=== PATIENT | male | born 1930 | race Caucasian/White ===

== ENCOUNTER 2016-10-08 06:08 | Emergency (ER) | payer OTHER ==
[2016-10-08 06:19] VITALS: RESP 16; TEMP 97.5
--- NOTE | 2016-10-08 06:49 | EDPHY ---
H & P Stated Complaint: rash on hands and feet Time Seen by Provider: 10/08/16 06:49 - Personal History Current Tetanus/Diphtheria Vaccine: No Current Tetanus Diphtheria and Acellular Pertussis (TDAP): No - Medical/Surgical History Hx Asthma: No Hx Chronic Respiratory Disease: No Hx Diabetes: No Hx Cardiac Disease: No Hx Renal Disease: No Hx Cirrhosis: No Hx Alcoholism: No Hx HIV/AIDS: No Hx Splenectomy or Spleen Trauma: No Other PMH: CLUSTER BAZZI, HERNIA REPAIR. back injuries - Social History Smoking Status: Never smoked Constitutional: Initial Vital Signs Temperature (C) 36.4 C 10/08/16 06:16 Heart Rate 86 10/08/16 06:16 Respiratory Rate 16 10/08/16 06:16 Blood Pressure 127/74 H 10/08/16 06:16 O2 Sat (%) 97 10/08/16 06:16 O2 Delivery Mode Room Air Allergies/Adverse Reactions: latex Allergy (Verified 10/08/16 06:14) elastic Allergy (Uncoded 03/19/15 21:42) Home Medications: Medication Instructions Recorded Aspirin [Aspirin 325 mg (*)] 650 mg PO DAILY PRN 03/20/15 Herbals/Supplements -Info Only 1 ea PO AD 03/20/15 Calcium Carbonate/Vitamin D3 1 each PO DAILY 03/22/15 [Calcium 600 + D Tablet] Amoxicillin 10/08/16 Famotidine [Pepcid 20 MG (OTC)] 20 mg PO DAILY #10 tab 10/08/16 predniSONE 40 mg PO DAILY #10 tab 10/08/16 Medical Decision Making ED Course/Re-evaluation: CHIEF COMPLAINT: Rash HISTORY OF PRESENT ILLNESS: 85-year-old gentleman who has been on amoxicillin for about a week as a treatment prior to a root canal. About 3 in the morning he woke up with very warm hands and feet. He noticed a red rash coming up his legs and on his hands and arms and also on his chest and buttocks. It is fairly diffuse and itchy and warm. He denies any respiratory difficulties. He denies any oropharyngeal swelling. He denies any lightheadedness dizziness or syncope. It is just itchy and hot REVIEW OF SYSTEMS: A 10 point review of systems was performed and is negative with the exception of the elements mentioned in the history of present illness. PHYSICAL EXAM: HR, BP, O2 Sat, RR. Temp noted General Appearance: Alert, well hydrated, appropriate, and non-toxic appearing. Head: Atraumatic without scalp tenderness or obvious injury Eyes: Pupils equal, round, reactive to light and accommodation, EOMI, no trauma , no injection. Ears: Clear bilaterally, no perforation, normal landmarks Nose: Atraumatic, no rhinorrhea, clear. Throat: There is no erythema or exudates, no lesions, normal tonsils, mucus membranes moist. Neck: Supple, 2+ carotid upstroke, nontender, no lymphadenopathy. Respiratory: No retractions, no distress, no wheezes, and no accessory muscle use. Lungs are clear to auscultation bilaterally. Cardiovascular: Regular rate and rhythm, no murmurs, rubs, or gallops. Bilateral carotid, radial, dorsalis pedis, and posterior tibial pulses intact. Good capillary refill all extremities. Gastrointestinal: Abdomen is soft, nontender, non-distended, no masses, no rebound, no guarding, no peritoneal signs. Musculoskeletal: Normal active ROM of all extremities, atraumatic. Neurological: Alert, appropriate, and interactive. The patient has normal DTRs and non-focal cranial nerves, motor, sensory, and cerebellar exam. Skin: Is no evidence of purpura or petechiae. This is papular rash which is fairly diffuse on his trunk buttocks lower back feet encroaching up the legs and hands encroaching up the arms. It does pooja. No rashes, good turgor, no nodules on palpation. Past medical history: Noncontributory except for dental issues requiring amoxicillin Past surgical history: Noncontributory Family history: Noncontributory Social history: , here with , does not abuse tobacco drugs or alcohol, retired DIFFERENTIAL DIAGNOSIS: The differential diagnosis included but was not limited to angioedema, anaphylaxis, anaphylactoid reaction, urticarial reaction , and other infectious causes for skin rash. Drug reaction, petechiae, purpura MEDICAL DECISION MAKING: I will check some laboratory studies on this patient to make sure his CBC electrolytes look normal. I have given him 10 mg of Decadron, 40 mg of Pepcid, 25 mg of Benadryl. There is no evidence of any respiratory difficulties. I believe this is fairly classically from amoxicillin as it has started and truncal distribution. This patient's rash is starting to resolve significantly. In addition the laboratory studies are unremarkable for any platelet abnormalities or electrolyte abnormalities or clotting abnormalities. I will ask the patient to stop amoxicillin, continue prednisone and Pepcid, and we will declare him amoxicillin allergic at this time. On repeat exams patient still is in no distress They will call her primary care physician today in follow-up either later today or tomorrow and return here if anything worsens. - Data Points Laboratory Results: Laboratory Results 10/08/16 07:11 10/08/16 07:11 10/08/16 07:11 WBC 9.75 H 10^3/uL (3.80-9.50) RBC 4.95 10^6/uL (4.40-6.38) Hgb 15.9 g/dL (13.7-17.5) Hct 45.6 % (40.0-51.0) MCV 92.1 fL (81.5-99.8) MCH 32.1 pg (27.9-34.1) MCHC 34.9 g/dL (32.4-36.7) RDW 13.0 % (11.5-15.2) Plt Count 269 10^3/uL (150-400) MPV 9.7 fL (8.7-11.7) Neut % (Auto) 80.8 H % (39.3-74.2) Lymph % (Auto) 6.2 L % (15.0-45.0) [place] % (Auto) 7.7 % (4.5-13.0) Eos % (Auto) 4.5 % (0.6-7.6) Baso % (Auto) 0.4 % (0.3-1.7) Nucleat RBC Rel Count 0.0 % (0.0-0.2) Absolute Neuts (auto) 7.88 H 10^3/uL (1.70-6.50) Absolute Lymphs (auto) 0.60 L 10^3/uL (1.00-3.00) Absolute Monos (auto) 0.75 10^3/uL (0.30-0.80) Absolute Eos (auto) 0.44 H 10^3/uL (0.03-0.40) Absolute Basos (auto) 0.04 10^3/uL (0.02-0.10) Absolute Nucleated RBC 0.00 10^3/uL (0-0.01) Immature Gran % 0.4 % (0.0-1.1) Immature Gran # 0.04 10^3/uL (0.00-0.10) PT 13.6 SEC (12.0-15.0) INR 1.05 (0.83-1.16) APTT 29.3 SEC (23.0-38.0) Sodium 144 mEq/L (134-144) Potassium 4.1 mEq/L (3.5-5.2) Chloride 105 mEq/L (97-110) Carbon Dioxide 29 mEq/l (22-31) Anion Gap 10 mEq/L (8-16) BUN 16 mg/dL (7-23) Creatinine 0.8 mg/dL (0.7-1.3) Estimated GFR > 60 Glucose 95 mg/dL (70-100) Calcium 9.0 mg/dL (8.5-10.4) Total Bilirubin 0.9 mg/dL (0.1-1.4) Conjugated Bilirubin 0.3 mg/dL (0.0-0.5) Unconjugated Bilirubin 0.6 mg/dL (0.0-1.1) AST 28 IU/L (17-59) ALT 42 IU/L (21-72) Alkaline Phosphatase 51 IU/L (38-126) Total Protein 7.2 g/dL (6.3-8.2) Albumin 4.0 g/dL (3.5-5.0) Lipase 54.0 IU/L (23-300) Medications Given: Discontinued Medications Dexamethasone (Decadron Injection) 10 mg IVP EDNOW ONE Stop: 10/08/16 06:58 Last Admin: 10/08/16 07:26 Dose: 10 mg Diphenhydramine HCl (Benadryl Injection) 25 mg IVP EDNOW ONE Stop: 10/08/16 06:58 Last Admin: 10/08/16 07:26 Dose: 25 mg Famotidine (Pepcid) 40 mg IVP EDNOW ONE Stop: 10/08/16 06:58 Last Admin: 10/08/16 07:26 Dose: 40 mg Departure - Departure Disposition: Home, Routine, Self-Care Clinical Impression: Allergic drug reaction Qualifiers: Encounter type: initial encounter Qualifier Code: (T78.40XA) Allergy, unspecified, initial encounter Condition: Good Instructions: Antibiotic Medication Allergy (ED) Additional Instructions: Follow up with your primary care physician today or tomorrow please. If anything worsens return here immediately Referrals: [place],. [Primary Care Provider] - As per Instructions Prescriptions: Famotidine [Pepcid 20 MG (OTC)] 20 mg PO DAILY #10 tab predniSONE 40 mg PO DAILY #10 tab
[2016-10-08] MEDS ORDERED: FAMOTIDINE 20 MG/2 ML SDV IVP ONE (06:57)
[2016-10-08] MEDS ORDERED: DEXAMETHASONE 10 MG/ML VIAL IVP ONE (06:57)
[2016-10-08 07:18] LABS: % IMMATURE GRANULYOCYTES 0.4 % (0.0-1.1); ABSOLUTE IMMATURE GRANULOCYTES 0.04 10^3/uL (0.00-0.10); ADD DIFF? NO; ADD MORPH? NO; ADD SCAN? NO; ATYPICAL LYMPHOCYTE FLAG 10 (0-99); FRAGMENT RBC FLAG 0 (0-99); HEMATOCRIT 45.6 % (40.0-51.0); HEMOGLOBIN 15.9 g/dL (13.7-17.5); LEFT SHIFT FLG 0 (0-99); LIPEMIA HEMOLYSIS FLAG 90 (0-99); MEAN CELL HEMOGLOBIN 32.1 pg (27.9-34.1); MEAN CELL HEMOGLOBIN CONCENTR. 34.9 g/dL (32.4-36.7); MEAN CELL VOLUME 92.1 fL (81.5-99.8); MEAN PLATELET VOLUME 9.7 fL (8.7-11.7); PLATELET CLUMPS FLAG 10 (0-99); PLATELET COUNT 269 10^3/uL (150-400); RED BLOOD CELL COUNT 4.95 10^6/uL (4.40-6.38)
[2016-10-08 07:26] LABS: INR 1.05 (0.83-1.16); PROTIME(PATIENT) 13.6 SEC (12.0-15.0)
[2016-10-08 07:27] LABS: APTT 29.3 SEC (23.0-38.0)
[2016-10-08 07:40] LABS: ALANINE AMINOTRANSFERASE 42 IU/L (21-72); ALKALINE PHOSPHATASE 51 IU/L (38-126); ANION GAP 10 mEq/L (8-16); ASPARTATE AMINOTRANSFERASE 28 IU/L (17-59); BILIRUBIN,TOTAL 0.9 mg/dL (0.1-1.4); BILIRUBIN-CONJUGATED 0.3 mg/dL (0.0-0.5); BILIRUBIN-UNCONJUGATED 0.6 mg/dL (0.0-1.1); CARBON DIOXIDE 29 mEq/l (22-31); CHLORIDE 105 mEq/L (97-110); CREATININE 0.8 mg/dL (0.7-1.3); GLOMERULAR FILTRATION RATE > 60; GLUCOSE 95 mg/dL (70-100); POTASSIUM 4.1 mEq/L (3.5-5.2); SODIUM 144 mEq/L (134-144); TOTAL PROTEIN 7.2 g/dL (6.3-8.2)
[2016-10-08 08:49] VITALS: BP 117/68; PULSE 70; O2SAT 94
== END 2016-10-08 08:48 | disposition home or self-care (01) ==
DX: T78.40XA Allergy, unspecified, initial encounter (principal); Z91.040 Latex allergy status; Z79.82 Long term (current) use of aspirin
CPT/HCPCS: 96374; J1200

== ENCOUNTER 2017-06-09 04:53 | Emergency (ER) | payer OTHER ==
--- NOTE | 2017-06-09 05:24 | EDPHY ---
H & P Stated Complaint: epistaxis- stopped now Time Seen by Provider: 06/09/17 05:11 HPI/ROS: Chief Complaint: Epistaxis HPI: 86-year-old male with a history of epistaxis in the past had a brief nosebleed yesterday afternoon. That stopped on its own. This morning at 2 o' clock morning he woke up with some blood on his pillow. He felt some blood in his nose but it stopped after a couple of minutes. He did not apply any pressure. Did not perform any particular maneuver stop the bleeding. He has not had any bleeding since but is presenting for evaluation. Denies any lightheadedness. No chest pain shortness of breath he is not on any blood thinning medications. He has had cautery in the past. Does not currently under the care of an ear nose and throat doctor. ROS: 10 point Review of Systems is negative except as noted in the HPI. Social History: No smoking Family History: non-contributory Physical Exam: Gen: Awake, Alert, No Distress HEENT: Nose: He has some mild dried blood and his right nostril. There is no active bleeding. There is no source of bleeding appreciated on examination. Eyes: PERRLA, EOMI Mouth: Moist mucosa Skin: no rash Neuro: CN II-XII intact, Sensation grossly intact, Strength 5/5 in bilateral upper and [lower extremities - Medical/Surgical History Hx Asthma: No Hx Chronic Respiratory Disease: No Hx Diabetes: No Hx Cardiac Disease: No Hx Renal Disease: No Hx Cirrhosis: No Hx Alcoholism: No Hx HIV/AIDS: No Hx Splenectomy or Spleen Trauma: No Other PMH: CLUSTER BAZZI, HERNIA REPAIR. back injuries - Social History Smoking Status: Never smoked Constitutional: Initial Vital Signs Temperature (C) 36.5 C 06/09/17 04:59 Heart Rate 63 06/09/17 04:59 Respiratory Rate 20 06/09/17 04:59 Blood Pressure 123/82 H 06/09/17 04:59 O2 Sat (%) 97 06/09/17 04:59 O2 Delivery Mode Room Air Allergies/Adverse Reactions: latex Allergy (Verified 06/09/17 04:59) elastic Allergy (Uncoded 06/09/17 04:59) Home Medications: Medication Instructions Recorded Aspirin [Aspirin 325 mg (*)] 650 mg PO DAILY PRN 03/20/15 Herbals/Supplements -Info Only 1 ea PO AD 03/20/15 Calcium Carbonate/Vitamin D3 1 each PO DAILY 03/22/15 [Calcium 600 + D Tablet] Amoxicillin 10/08/16 Famotidine [Pepcid 20 MG (OTC)] 20 mg PO DAILY #10 tab 10/08/16 predniSONE 40 mg PO DAILY #10 tab 10/08/16 Medical Decision Making ED Course/Re-evaluation: Patient with an episode of bleeding from his nose earlier this morning. The stop. There is no active bleeding at this time. No region amenable to cautery at this time. Will discharge him with follow up with Ear Nose and Throat. He will also get a humidifier for his home. Departure - Departure Disposition: Home, Routine, Self-Care Clinical Impression: Acute anterior epistaxis Condition: Good Instructions: Nosebleed (ED) Additional Instructions: If your nose begins to bleed again apply a nose clip to the soft portion of your nose and leave it in place for 20-30 minutes. If this does not stop the bleeding present to the emergency department for further evaluation. Follow up with Ear Nose and Throat doctor in 2-3 days for further evaluation. Referrals: [facility] [Other] - As per Instructions Marco Antonio Brewster MD [Medical Doctor] - As per Instructions
[2017-06-09 06:06] VITALS: BP 141/74; PULSE 66; RESP 16; TEMP 97.9; O2SAT 94
== END 2017-06-09 06:05 | disposition home or self-care (01) ==
DX: R04.0 Epistaxis (principal); Z79.82 Long term (current) use of aspirin; Z91.040 Latex allergy status

== ENCOUNTER 2017-06-10 20:32 | Emergency (ER) | payer OTHER ==
[2017-06-10 20:41] VITALS: BP 147/90; PULSE 76; RESP 18; TEMP 98.4; O2SAT 96
--- NOTE | 2017-06-10 22:16 | EDPHY ---
H & P Stated Complaint: nosebleed HPI/ROS: HPI CHIEF COMPLAINT: Epistaxis seen last night HISTORY OF PRESENT ILLNESS: This patient is a very pleasant 86-year-old male, no significant medical history she presents to the emergency room yesterday with epistaxis. This resolved in the emergency room he followed up with ENT and had a cauterization of the right Nare. This was earlier this morning he reports he cannot remember exactly that exact time. He comes back to the emergency room as he states that he had a light trickle out of it this evening. He is debating whether to come in or follow up with ENT tomorrow. Since arriving in emergency room is epistaxis has resolved. He did have a nasal clamp in the waiting room for an hour. He is not on any anticoagulation. Past Medical History: Cluster headache, GERD Past Surgical History: Hernia repair Social History: Denies drugs alcohol tobacco products. Family History: Noncontributory. ROS REVIEW OF SYSTEMS: A comprehensive 10 point review of systems is otherwise negative aside from elements mentioned in the history of present illness. Exam Constitutional appears well nontoxic, triage nursing summary reviewed, vital signs reviewed, awake/alert. Eyes normal conjunctivae and sclera, EOMI, PERRLA. HENT right Wallace anterior epistaxis present. Left Wallace normal. normal inspection, atraumatic, moist mucus membranes, no epistaxis, neck supple/ no meningismus, no raccoon eyes. Respiratory clear to auscultation bilaterally, normal breath sounds, no respiratory distress, no wheezing. Cardiovascular rate normal, regular rhythm, no murmur, no edema, distal pulses normal. Gastrointestinal soft, non-tender, no rebound, no guarding, normal bowel sounds, no distension, no pulsatile mass. Genitourinary no CVA tenderness. Musculoskeletal no midline vertebral tenderness, full range of motion, no calf swelling, no tenderness of extremities, no meningismus, good pulses, neurovascularly intact. Skin pink, warm, & dry, no rash, skin atraumatic. Neurologic awake, alert and oriented x 3, AAOx3, moves all 4 extremities equally, motor intact, sensory intact, CN II-XII intact, normal cerebellar, normal vision, normal speech. Psychiatric normal mood/affect. Heme/Lymph/Immune no lymphadenopathy. Differential Diagnosis: Includes but is not limited to in a particular order acute right anterior epistaxis, posterior epistaxis, recurrent epistaxis Medical Decision Making: Plan for this patient resolved epistaxis in the waiting room. Recent cauterization by ENT today. Anterior nose bleed. Will monitor her closely for further bleeding. If he does not bleed over the next hour allow 1 go home. Follow up with ENT tomorrow. He understands. Return emergency room if recurrent or bleed. Re-evaluation: 2245: Re-examination at this time. Patient having no further epistaxis. Nasal clamp is been off for an hour. I will allow her to go home. Understands return emergency room if worsening symptoms including recurrent nosebleed. Return precautions given. He understands. Source: Patient - Medical/Surgical History Hx Asthma: No Hx Chronic Respiratory Disease: No Hx Diabetes: No Hx Cardiac Disease: No Hx Renal Disease: No Hx Cirrhosis: No Hx Alcoholism: No Hx HIV/AIDS: No Hx Splenectomy or Spleen Trauma: No Other PMH: CLUSTER BAZZI, HERNIA REPAIR. back injuries - Social History Smoking Status: Never smoked Constitutional: Initial Vital Signs Temperature (C) 36.9 C 06/10/17 20:39 Heart Rate 76 06/10/17 20:39 Respiratory Rate 18 06/10/17 20:39 Blood Pressure 147/90 H 06/10/17 20:39 O2 Sat (%) 96 06/10/17 20:39 O2 Delivery Mode Room Air Allergies/Adverse Reactions: amoxicillin Allergy (Verified 06/10/17 20:42) latex Allergy (Verified 06/09/17 04:59) elastic Allergy (Uncoded 06/09/17 04:59) Home Medications: Medication Instructions Recorded Aspirin [Aspirin 325 mg (*)] 650 mg PO DAILY PRN 03/20/15 Herbals/Supplements -Info Only 1 ea PO AD 03/20/15 Calcium Carbonate/Vitamin D3 1 each PO DAILY 03/22/15 [Calcium 600 + D Tablet] Famotidine [Pepcid 20 MG (OTC)] 20 mg PO DAILY #10 tab 10/08/16 predniSONE 40 mg PO DAILY #10 tab 10/08/16 Departure - Departure Disposition: Home, Routine, Self-Care Clinical Impression: Epistaxis Condition: Good Instructions: Nosebleed (ED) Additional Instructions: 1. Return to the emergency room if you continue to have significant bleeding. 2. Please follow up with ENT tomorrow. Referrals: [facility] [Other] - As per Instructions Stephen Edmondson MD [Medical Doctor] - As per Instructions
== END 2017-06-10 23:10 | disposition home or self-care (01) ==
DX: R04.0 Epistaxis (principal); Z79.82 Long term (current) use of aspirin; Z91.040 Latex allergy status

== ENCOUNTER 2017-06-11 12:14 | Emergency (ER) | payer OTHER ==
[2017-06-11 12:19] VITALS: BP 149/82; PULSE 53; RESP 20; TEMP 98.6; O2SAT 94
== END 2017-06-11 12:39 | disposition left against medical advice (07) ==
DX: Z53.21 Procedure and treatment not carried out due to patient leaving prior to being seen by health care provider (principal)

== ENCOUNTER 2017-11-10 15:29 | Observation (INO) | payer OTHER ==
--- NOTE | 2017-11-10 16:03 | EDPHY ---
H & P Stated Complaint: H/A since last fall;had MRI at [facility] today; dx poss brain bleed; sent here Time Seen by Provider: 11/10/17 15:53 HPI/ROS: CHIEF COMPLAINT: Abnormal MRI HISTORY OF PRESENT ILLNESS: The patient is an 86-year-old with a history of right-sided hearing loss but no other medical problems. He does not take any medications other than meclizine. He states that he had a bloody nose in June that required 2 cauterizations by ENT. Since that time he has had intermittent pressure at the top of his head when he exercises and also pain in the right side of his face when he tries to sleep on his right side. Last week he saw his primary doctor who ordered an MRI of his brain. Today it was taken and the patient was called by Dr. Peterson and told to come to the ER that he has a intracranial hemorrhage. The patient currently does not have a headache. He has no weakness or deficits. No vision changes. No hearing changes. He states that he has baseline slight vertigo that he takes meclizine for and that has not changed. REVIEW OF SYSTEMS: Constitutional: denies: chills, fever, recent illness, recent injury EENTM: denies: blurred vision, double vision, nose congestion Respiratory: denies: cough, shortness of breath Cardiac: denies: chest pain, irregular heart rate, lightheadedness, palpitations Gastrointestinal/Abdominal: denies: abdominal pain, diarrhea, nausea, vomiting, blood streaked stools Genitourinary: denies: dysuria, frequency, hematuria, pain Musculoskeletal: denies: joint pain, muscle pain Skin: denies: lesions, rash, jaundice, bruising Neurological: See HPI denies: numbness, paresthesia, tingling, weakness Hematologic/Lymphatic: denies: blood clots, easy bleeding, easy bruising Immunologic/allergic: denies: HIV/AIDS, transplant EXAM: GENERAL: Well-appearing, well-nourished and in no acute distress. HEAD: Atraumatic, normocephalic. EYES: Pupils equal round and reactive to light, extraocular movements intact, sclera anicteric, conjunctiva are normal. ENT: nares patent, oropharynx clear without exudates. Moist mucous membranes. Right-sided hearing loss NECK: Normal range of motion, supple without lymphadenopathy or JVD. LUNGS: Breath sounds clear to auscultation bilaterally and equal. No wheezes rales or rhonchi. HEART: Regular rate and rhythm without murmurs, rubs or gallops. ABDOMEN: Soft, nontender, normoactive bowel sounds. No guarding, no rebound. No masses appreciated. BACK: No CVA tenderness, no spinal tenderness, step-offs or deformities EXTREMITIES: Normal range of motion, no pitting or edema. No clubbing or cyanosis. NEUROLOGICAL: Cranial nerves II through XII grossly intact. Normal speech, normal gait. 5/5 strength, normal movement in all extremities, normal sensation PSYCH: Normal mood, normal affect. SKIN: Warm, dry, normal turgor, no visible rashes or lesions. Source: Patient Exam Limitations: No limitations - Personal History Current Tetanus Diphtheria and Acellular Pertussis (TDAP): Unsure - Medical/Surgical History Hx Asthma: No Hx Chronic Respiratory Disease: No Hx Diabetes: No Hx Cardiac Disease: No Hx Renal Disease: No Hx Cirrhosis: No Hx Alcoholism: No Hx HIV/AIDS: No Hx Splenectomy or Spleen Trauma: No Other PMH: CLUSTER BAZZI, HERNIA REPAIR. back injuries - Family History Significant Family History: No pertinent family hx - Social History Smoking Status: Never smoked Alcohol Use: Sober Drug Use: None Constitutional: Initial Vital Signs Temperature (C) 36.7 C 11/10/17 15:34 Heart Rate 76 11/10/17 15:34 Respiratory Rate 18 11/10/17 15:34 Blood Pressure 148/93 H 11/10/17 15:34 O2 Sat (%) 97 11/10/17 15:34 O2 Delivery Mode Room Air Allergies/Adverse Reactions: amoxicillin Allergy (Verified 11/10/17 15:33) latex Allergy (Verified 11/10/17 15:33) elastic Allergy (Uncoded 06/09/17 04:59) Home Medications: Medication Instructions Recorded NK [No Known Home Meds] 11/10/17 Medical Decision Making - Diagnostics Imaging Results: Imaging Impressions Head CT 11/10/17 16:04 Impression: 1. Small subdural collection, favor subacute hematoma along the right lateral convexity with maximal thickness of 5 mm. No significant midline shift. 2. Mild-moderate diffuse cerebral volume loss. 3. Right maxillary and ethmoid sinusitis. Findings and recommendations discussed with KIARA JOHNSON at 5:18 PM hour, 11/10/2017. Imaging: Discussed imaging studies w/ call center associate Radiologist ED Course/Re-evaluation: I discussed the case with Dr. Adan Bauman who will consult and request TXA and admission to the medical service for observation. Discussed with family who understands and agrees. I doubt that this is responsible for [address] headache. Head CT ordered in this adult patient for trauma for the following indication: Report of bleed Differential Diagnosis: Partial list of the Differential diagnosis considered include but were not limited to; intracranial hemorrhage, dissection, and although unlikely based on the history and physical exam, I also considered tumor, ischemia affection. Critical Care Time: Critical care time spent by me, Dr. Johnson exclusive with this patient was 45 minutes, exclusive of the PA time exclusive of procedures. The organ system that was at risk was neurologic and I gave consultation, imaging and admission to prevent worsening of the patient's condition - Data Points Laboratory Results: Laboratory Results 11/10/17 16:15 11/10/17 16:15 11/10/17 11/10/17 11/10/17 16:15 16:15 16:15 WBC 8.48 10^3/uL 10^3/uL (3.80-9.50) RBC 4.80 10^6/uL 10^6/uL (4.40-6.38) Hgb 15.5 g/dL g/dL (13.7-17.5) Hct 44.9 % % (40.0-51.0) MCV 93.5 fL fL (81.5-99.8) MCH 32.3 pg pg (27.9-34.1) MCHC 34.5 g/dL g/dL (32.4-36.7) RDW 12.9 % % (11.5-15.2) Plt Count 298 10^3/uL 10^3/uL (150-400) MPV 10.2 fL fL (8.7-11.7) Neut % (Auto) 68.9 % % (39.3-74.2) Lymph % (Auto) 18.5 % % (15.0-45.0) [place] % (Auto) 9.1 % % (4.5-13.0) Eos % (Auto) 2.4 % % (0.6-7.6) Baso % (Auto) 0.9 % % (0.3-1.7) Nucleat RBC Rel Count 0.0 % % (0.0-0.2) Absolute Neuts (auto) 5.84 10^3/uL 10^3/uL (1.70-6.50) Absolute Lymphs (auto) 1.57 10^3/uL 10^3/uL (1.00-3.00) Absolute Monos (auto) 0.77 10^3/uL 10^3/uL (0.30-0.80) Absolute Eos (auto) 0.20 10^3/uL 10^3/uL (0.03-0.40) Absolute Basos (auto) 0.08 10^3/uL 10^3/uL (0.02-0.10) Absolute Nucleated RBC 0.00 10^3/uL 10^3/uL (0-0.01) Immature Gran % 0.2 % % (0.0-1.1) Immature Gran # 0.02 10^3/uL 10^3/uL (0.00-0.10) PT 13.3 SEC SEC (12.0-15.0) INR 0.99 (0.83-1.16) APTT 29.8 SEC SEC (23.0-38.0) Sodium 143 mEq/L mEq/L (135-145) Potassium 3.9 mEq/L mEq/L (3.5-5.2) Chloride 105 mEq/L mEq/L (97-110) Carbon Dioxide 25 mEq/l mEq/l (22-31) Anion Gap 13 mEq/L mEq/L (8-16) BUN 15 mg/dL mg/dL (7-23) Creatinine 0.7 mg/dL mg/dL (0.7-1.3) Estimated GFR > 60 Glucose 102 mg/dL H mg/dL (70-100) Calcium 9.7 mg/dL mg/dL (8.5-10.4) Medications Given: Tranexamic Acid 1,000 mg/ (Sodium Chloride) 510 mls @ 63.75 mls/hr IV ONCE ONE Stop: 11/11/17 01:59 Last Admin: 11/10/17 19:33 Dose: 510 mls Discontinued Medications Tranexamic Acid 1,000 mg/ (Sodium Chloride) 110 mls @ 660 mls/hr IV ONCE ONE Stop: 11/10/17 18:09 Last Admin: 11/10/17 19:14 Dose: 110 mls Departure - Departure Disposition: [facility] Inpatient Acute Clinical Impression: Subdural hemorrhage Condition: Critical
[2017-11-10 16:30] LABS: PLATELET COUNT 298 10^3/uL (150-400)
[2017-11-10 16:42] LABS: INR 0.99 (0.83-1.16); PROTIME(PATIENT) 13.3 SEC (12.0-15.0)
[2017-11-10] MEDS ORDERED: TRANEXAMIC ACID 1,000 MG in NS 100 ML IV ONE (18:00)
[2017-11-10] MEDS ORDERED: TRANEXAMIC ACID 1,000 MG in NS 500 ML IV ONE (18:00)
[2017-11-10] MEDS ORDERED: ONDANSETRON DISINTEGRATING 4 MG TAB PO PRN (19:02)
[2017-11-10] MEDS ORDERED: ACETAMINOPHEN 325 MG TAB PO PRN (19:02)
[2017-11-10] MEDS ORDERED: ONDANSETRON 4 MG/2 ML VIAL IVP PRN (19:02)
--- NOTE | 2017-11-10 20:18 | SOAPPROG ---
Downtime Inpatient MD Late Entry SOAP Note: Patient was seen and examined in the ER. The SDH is likely non operative and we could try Tranexamic Acid 650mg PO BID if the medicine service thinks this is reasonable for him. An outpatient scan can be done in a few weeks. It would also be reasonable to make sure he does not have an underlying bleeding disorder givine his history of nose bleeds and now a sdh.
[2017-11-10] MEDS ORDERED: MECLIZINE HCL 25 MG TAB PO PRN (20:36)
--- NOTE | 2017-11-10 21:22 | GCON ---
[f rep st] CONSULTATION NEUROSURGERY CONSULTATION DATE OF CONSULTATION: 11/10/2017 REASON FOR CONSULTATION: Right subdural hematoma. LOCATION OF CONSULTATION: Emergency Department at [facility]. HISTORY OF PRESENT ILLNESS: The patient is an 86-year-old of the [place] with right-sided hearing loss, who over the last few months has had a few medical problems with difficulty with right -sided bloody nose in June, requiring 2 cauterizations by ENT. He has had some vertigo and he mathieu es meclizine for this, but since the time of his cauterizations he has had difficulty sleeping on the right side of his head, which is his preferred side and he says that he has pain on the right side o f his face and has discomfort when he lays on that side. His primary care physician saw him last we k for these ongoing complaints of headache, or right-sided facial discomfort more so than headache an d an MRI was ordered and it demonstrated a subdural hematoma and he was sent here. We do not have th e outside MRI that was done, but a CT scan was done at [facility]. Indeed, he has a small right-sided subdural hematoma and Neurosurgery was consulted. He denies any weakness, sensory difficulty, vision changes. He has had no changes in hearing and his baseline slight vertigo he stat es has not changed. PAST MEDICAL HISTORY: Includes cluster headache. PAST SURGICAL HISTORY: Includes hernia repair. He also has a prior back injury. FAMILY HISTORY: Negative for bleeding diathesis or prior subdural hematomas. SOCIAL HISTORY: Never smoked. He does not drink. PHYSICAL EXAM: VITAL SIGNS: His temperature is 36.7, heart rate 76, respiratory rate 18, blood pres sure 148/93, saturation 97%. NEUROLOGIC: His eyes are open. He follows commands in all extremities . He has good strength. He has no evidence of pronator drift. He has no Leslie sign. His sensat ion is intact. His extraocular movements are intact and his face is equal. DIAGNOSTIC REVIEW: CT scan of the head demonstrates a 6 mm right convexity subdural hematoma without significant mass effect. ASSESSMENT: The patient is an 86-year-old, elderly gentleman with right subdural hematoma collection as well as over the last couple months has had difficulty with right-sided nasal hemorrhage requirin g cauterization by Ear, Nose, and Throat. He will be admitted overnight to the hospital, and it woul d be reasonable for us to consider tranexamic acid 650 mg p.o. twice daily and to check his coags for an underlying bleeding disorder. He will be admitted to the Medicine service and if he continues to do well, we likely will discharge him tomorrow after a period of observation. We could arrange for an outpatient CT scan of the head in 2-3 weeks if we are able to successfully put him on tranexamic a ivy. Neurosurgery will see the patient again tomorrow. He could be admitted to the regular hospital floor, and there is no reason to use Derek in this case. /[id number]/MODL
--- NOTE | 2017-11-10 22:07 | GHP ---
[f rep st] HISTORY AND PHYSICAL DATE OF ADMISSION: 11/10/2017 HISTORY OF PRESENT ILLNESS: The patient is a pleasant 86-year-old gentleman with a history of actini c keratoses for which he is getting chemotherapy-style cream, as well as longstanding headaches. [facility] He had been seen there for headaches that h ave been going on for somewhere between months and years. He received an MRI of his head which showe d a small subdural. He was referred to the emergency department. When I speak with him, he denies r ecent trauma. He does not take blood thinners. He does not take excessive aspirin. He has not had nausea or vomiting. He has some confusion with word-finding that is chronic and not new, but he has had no falls. No fever, chills. No cough, sputum. No nausea, vomiting, diarrhea. REVIEW OF SYSTEMS: Complete 10-point review of systems conducted and negative except as noted in the HPI. PAST MEDICAL HISTORY: 1. Admission here for chest pain a couple years ago with negative workup. 2. Chronic headaches of uncertain etiology. 3. Subdural. 4. Actinic keratosis. SOCIAL HISTORY: No tobacco, no alcohol. He is a . He has worked in real estate. ALLERGIES: Amoxil and latex, as well as elastic. HOME MEDICATIONS: None. FAMILY HISTORY: Parents . PHYSICAL EXAMINATION: VITAL SIGNS: Temp 36.7 blood pressure 148/93, pulse 76, breathing 18 times a minute, 97% on room air. GENERAL: No acute distress. HEENT: Sclerae anicteric. Oropharynx clear. Mucous membranes are moist. NECK: Supple without lymphadenopathy or JVD. LUNGS: Clear to auscul tation bilaterally. HEART: S1, S2. ABDOMEN: Soft, nontender, nondistended. EXTREMITIES: Lower e xtremities are without edema. Calves are nontender. SKIN: Without rash. NEUROLOGIC: Exam is nonf ocal. LABORATORY DATA: White count 8.5, hematocrit 45, platelets are 298,000. Coags normal. Sodium 143, potassium 3.9, chloride 105, bicarb 25, BUN 15, creatinine 0.7, glucose 102. Noncontrast head CT images reviewed and interpreted by me show a small subdural collection favoring s ubacute hematoma of the latter convexity with thickness of 5 mm without midline shift. There is mild to moderate diffuse cerebral volume loss. I have discussed the case Dr. Rl Johnson. ASSESSMENT/PLAN: An 86-year-old gentleman with a history of headaches, here with subdural. 1. Subdural. It is unclear if this is causing him his headaches, but certainly was concerning to bobo ROMERO. He received tranexamic acid. He has been followed by Neurosurgery. Will follow. Will check coags in the morning, they were normal here. 2. Skin cancer. I think these are probably pre-cancerous lesions. We will continue his medications . 3. Hypertension. We will follow it, but at 139/77 we will not treat. I will not write p.r.n., as I would rather be called. PROPHYLAXIS: Pharmacologic prophylaxis indicated. DISPOSITION: Observation status. /[id number]/MODL
[2017-11-10 23:44] VITALS: RESP 16
[2017-11-11 04:51] LABS: INR 1.08 (0.83-1.16); PROTIME(PATIENT) 14.2 SEC (12.0-15.0)
--- NOTE | 2017-11-11 07:54 | NEUSURGPN ---
Assessment/Plan: Assessment: 86 yo male that is admitted to with non traumatic SDH without mass effect Plan: -SDH that is noted without mass effect: no surgery recommended at this time -neuro intact, awake and alert. NAD -started Tranexamic Acid 650 mg BID -PT/OT/ST to work with pt today as well -call with any questions or concerns -pt eating breakfast sitting up and requesting to be dcd home -warning signs given -pt understands and agrees to no surgery and medical management at this time Subjective: Awake and alert. No new events overnight. No smith/neck/chest/abd or gu complaints. Objective: AAO x 3, PERRLA/EOMI no droop CN 2-12 grossly intact +lt touch 5/5 BUE/BLE = Neuro Check Frequency: per routine Urinary Catheter in Place: No - Physician Discussed Patient with : Mitul Patient Seen by : Mitul Neurosurgery Physical Exam - Vitals, I&O, Labs I and O 11/10/17 11/11/17 11/12/17 05:59 05:59 05:59 Intake Total 200 Balance 200 Weight 68.039 kg Intake: Oral (ml) 200 Other: Number of Voids Toilet 1 Vital Signs Temp Pulse Resp BP Pulse Ox 36.4 C 54 L 16 104/55 L 95 11/11/17 04:00 11/11/17 04:00 11/11/17 04:00 11/11/17 04:00 11/11/17 04:00 ICD10 Worksheet Patient Problems: Problems Problem Status Onset Subdural hemorrhage Acute Weakness Acute
[2017-11-11] MEDS ORDERED: TRANEXAMIC ACID 650 MG TAB PO SCH ×2 (09:00)
[2017-11-11 11:47] VITALS: BP 109/65; PULSE 77; TEMP 98; O2SAT 96
--- NOTE | 2017-11-11 12:31 | HOSPPROG ---
Hospitalist Progress Note Assessment/Plan: Patient is an 86-year-old male with a history of longstanding headaches. He received an MRI of his head which showed a small subdural. Today is my 1st encounter with the patient. Chart reviewed. Discussed his care with Neurosurgery * subdural hematoma without mass effect -neurosurgery is recommending that he stay on the tranexamic acid for 30 days and then get a repeat CT scan of his head * skin cancer -f/u with PCP * hypertension -stable *headaches -uses medical Cannibis *Plan: dc home with close f/u w neurosurgery. He has no significant cardiac hx, knows to avoid all NSAIDS. Subjective: Shaheen is feeling well, anxious to be dc. Objective: Vital Signs Temp Pulse Resp BP Pulse Ox 36.7 C 77 16 109/65 96 11/11/17 11:45 11/11/17 11:45 11/11/17 11:45 11/11/17 11:45 11/11/17 11:45 11/10/17 11/11/17 11/12/17 05:59 05:59 05:59 Intake Total 200 Balance 200 PT 14.2 SEC (12.0-15.0) 11/11/17 04:12 INR 1.08 (0.83-1.16) 11/11/17 04:12 - Physical Exam Constitutional: no apparent distress, appears nourished, not in pain Eyes: PERRL Ears, Nose, Mouth, Throat: hearing normal Cardiovascular: regular rate and rhythym Respiratory: no respiratory distress Skin: warm Musculoskeletal: full muscle strength Neurologic: AAOx3 Psychiatric: interacting appropriately, not anxious ICD10 Worksheet Patient Problems: Problems Problem Status Onset Subdural hemorrhage Acute Weakness Acute
--- NOTE | 2017-11-11 14:09 | GDS ---
[f rep st] DISCHARGE SUMMARY DISCHARGE DIAGNOSES: 1. Subdural hematoma. 2. Skin cancer. 3. Hypertension. 4. Headaches. CONSULTATIONS: Dr. Adan Bauman. Briefly, the patient is an 86-year-old male with a history of longstanding headaches. He received a CT scan of his head, which showed a small subdural. He was seen and evaluated by Neurosurgery. Thei r recommendation is tranexamic acid for [address] scan for followup. HOSPITAL COURSE PER PROBLEM: 1. Subdural hematoma without mass effect: He will be on the Tranexamic acid for 30 days and then ge t a repeat CT scan. He is stable. 2. Skin cancer: Follow up with his primary care provider. 3. Hypertension: Stable. 4. Headaches: He uses medical cannabis for this. He has no headaches at this time. DISCHARGE CONDITION: Stable. Blood pressure is 109/65, heart rate is 77, respiratory rate is 16, O2 saturation in room air 96%, temperature is 36.7 Celsius. DISCHARGE INSTRUCTIONS: 1. To follow up with Neurosurgery in the next 30 days. 2. Reviewed the side effects of the tranexamic acid. He is aware of these. 3. Avoid all NSAIDs. /[id number]/MODL
--- NOTE | 2017-11-11 15:03 | ASDISCHSUM ---
Discharge Information Plan Status:Home with No Needs Medically Cleared to Leave: Discharge Date:11/11/2017 02:54 PM CM D/C Disposition: ADT D/C Disposition:Home, Routine, Self-Care Projected Discharge Date:11/11/2017 02:54 PM Transportation at D/C: Discharge Delay Reason: Follow-Up Date:11/11/2017 02:54 PM Discharge Slot: Final Diagnosis: Placement Information Patient Contact Information Contact Name:NITESH Relationship:Life Partner Address:[address] City:[place] Alternate Phone: [facility]/Zip Code:[place] [address] Email: Financial Information Financial Class:HMO and PPO Plans Primary Plan Desc:[employer] Primary Plan Number:[id number] Secondary Plan Desc: Secondary Plan Number: Assessment Information [facility] CM Progress Note CM Note CM Note Notes: Pt MRI shows subdural hemorrhage, pt will d/c and follow up w neurosurgery. No therapies ordered. Pt medically stable for d/c, no CM d/c needs identified. Date Signed: 11/11/2017 03:02 PM Electronically Signed By:SOLITARIO Ortez Intervention Information
== END 2017-11-11 14:54 | disposition home or self-care (01) ==
LOC: F3N 19:44
PROVIDERS: ADMIT Internal Medicine; ATTEND Internal Medicine
DX: I62.00 Nontraumatic subdural hemorrhage, unspecified (principal); R51 Headache; R42 Dizziness and giddiness; L57.0 Actinic keratosis; H91.91 Unspecified hearing loss, right ear; I10 Essential (primary) hypertension; Z88.0 Allergy status to penicillin
CPT/HCPCS: 70450; G0378

== ENCOUNTER 2018-11-27 07:55 | Emergency (ER) | payer OTHER ==
[2018-11-27] MEDS ORDERED: NS 1,000 ML IV ONE (08:02)
--- NOTE | 2018-11-27 08:08 | EDPHY ---
H & P Stated Complaint: HX TBI, H/A this am and took 2 CBD pills for pain, syncope on toilet Time Seen by Provider: 11/27/18 08:02 HPI/ROS: CHIEF COMPLAINT: Headache, somnolence HISTORY OF PRESENT ILLNESS: The patient is an 80-year-old man with a history of frequent headaches, hypertension, and multiple concussions who woke up this morning with a headache. He typically takes CBD well daily for his headaches. Today he took a double dose. About an hour later he became somnolecent and generally weak. He then walked to the bathroom. He had a syncopal event while sitting on the toilet and fell to the ground. Denies any trauma or pain. No focal deficits. No trauma. No confusion. No slurred speech. The patient was here about a year ago for a subdural hematoma that was treated with 30 days of TXA. Severity: Moderate Modifying factors: None REVIEW OF SYSTEMS: Constitutional: Difficult to obtain, somewhat sleepy and minimally cooperative, EENTM: denies: blurred vision, double vision, nose congestion Respiratory: denies: cough, shortness of breath Cardiac: denies: chest pain, irregular heart rate, lightheadedness, palpitations Gastrointestinal/Abdominal: denies: abdominal pain, diarrhea, nausea, vomiting, blood streaked stools Genitourinary: denies: dysuria, frequency, hematuria, pain Musculoskeletal: denies: joint pain, muscle pain Skin: denies: lesions, rash, jaundice, bruising Neurological: See HPI denies: numbness, paresthesia, tingling, dizziness Hematologic/Lymphatic: denies: blood clots, easy bleeding, easy bruising Immunologic/allergic: denies: HIV/AIDS, transplant 10 systems reviewed and negative except as noted EXAM: GENERAL: Sleepy, very much concerned about not having a pillow and not very cooperative with exam until we got him a pillow. HEAD: Atraumatic, normocephalic. EYES: Pupils equal round and reactive to light, extraocular movements intact, sclera anicteric, conjunctiva are normal. ENT: TMs normal, nares patent, oropharynx clear without exudates. Moist mucous membranes. NECK: Normal range of motion, supple without lymphadenopathy or JVD. LUNGS: Breath sounds clear to auscultation bilaterally and equal. No wheezes rales or rhonchi. HEART: Regular rate and rhythm without murmurs, rubs or gallops. ABDOMEN: Soft, nontender, normoactive bowel sounds. No guarding, no rebound. No masses appreciated. BACK: No CVA tenderness, no spinal tenderness, step-offs or deformities EXTREMITIES: Normal range of motion, no pitting or edema. No clubbing or cyanosis. NEUROLOGICAL: Cranial nerves II through XII grossly intact. Normal speech. 5/ 5 strength, normal movement in all extremities, normal sensation, normal reflexes PSYCH: Sleepy SKIN: Warm, dry, normal turgor, no visible rashes or lesions. Source: Patient, EMS, Old records Exam Limitations: Clinical condition - Personal History Current Tetanus/Diphtheria Vaccine: Unsure Current Tetanus Diphtheria and Acellular Pertussis (TDAP): Unsure - Medical/Surgical History Hx Asthma: No Hx Chronic Respiratory Disease: No Hx Diabetes: No Hx Cardiac Disease: No Hx Renal Disease: No Hx Cirrhosis: No Hx Alcoholism: No Hx HIV/AIDS: No Hx Splenectomy or Spleen Trauma: No Other PMH: CLUSTER BAZZI, HERNIA REPAIR, TBI. back injuries - Family History Significant Family History: No pertinent family hx - Social History Smoking Status: Never smoked Alcohol Use: None Constitutional: Initial Vital Signs Heart Rate 65 11/27/18 07:55 Respiratory Rate 16 11/27/18 07:55 Blood Pressure 123/69 H 11/27/18 07:55 O2 Sat (%) 93 11/27/18 07:55 O2 Delivery Mode Room Air Allergies/Adverse Reactions: amoxicillin Allergy (Verified 11/10/17 15:33) latex Allergy (Verified 11/10/17 15:33) elastic Allergy (Uncoded 06/09/17 04:59) Home Medications: Medication Instructions Recorded Herbals/Supplements -Info Only 1 ea PO DAILY 11/10/17 Meclizine HCl [Meclizine HCl 25 mg 12.5 mg PO BID PRN 11/10/17 (RX,OTC)] Acetaminophen [Tylenol 325mg (*)] 650 mg PO Q4HRS PRN tab 11/11/17 Tranexamic Acid 650 mg PO BID #60 tab 11/11/17 Medical Decision Making - Diagnostics EKG Interpretation: An EKG obtained and was read and documented in trace view. Please see trace view for full reading and report. Sinus rhythm, no acute ischemic changes Imaging Results: Imaging Impressions Head CT 11/27/18 08:02 Impression: 1. Mild age-related atrophy. 2. No hemorrhage, mass effect, or definite acute peripheral infarct. If symptoms worsen, additional imaging may be necessary. Findings discussed with Rl Johnson M.D. at 8:33 hour, 11/27/2018. Imaging: Discussed imaging studies w/ weight caller Radiologist ED Course/Re-evaluation: The 8:55 a.m. The patient began having some full body shaking, not consistent with shaving. He states that he has not called. He seems anxious. It was able to resolve with reassurance. 12:00 p.m. the patient is feeling completely better. He is ambulating. He is asking to go the bathroom. He has talking normally and acting normally. His is here to take him. She told him that he is no longer lab to take CBD pills. Differential Diagnosis: Partial list of the Differential diagnosis considered include but were not limited to; CBD overdose, syncope, and although unlikely based on the history and physical exam, I also considered arrhythmia, CVA, head injury, cervical spine injury, acute coronary disease. I discussed these differential diagnoses and the plan with the patient as well as the usual and expected course. The patient understands that the diagnosis is provisional and that in medicine we are not always correct and that further workup is often warranted. Usual and customary warnings were given. All of the patient's questions were answered. The patient was instructed to return to the emergency department should the symptoms at all worsen or return, otherwise to followup with the physician as we discussed. - Data Points Laboratory Results: Laboratory Results 11/27/18 08:00 11/27/18 08:00 11/27/18 11/27/18 11/27/18 08:04 08:00 08:00 WBC 11.34 10^3/uL H 10^3/uL (3.80-9.50) RBC 4.38 10^6/uL L 10^6/uL (4.40-6.38) Hgb 14.0 g/dL g/dL (13.7-17.5) Hct 43.0 % % (40.0-51.0) MCV 98.2 fL fL (81.5-99.8) MCH 32.0 pg pg (27.9-34.1) MCHC 32.6 g/dL g/dL (32.4-36.7) RDW 13.2 % % (11.5-15.2) Plt Count 317 10^3/uL 10^3/uL (150-400) MPV 10.3 fL fL (8.7-11.7) Neut % (Auto) 55.2 % % (39.3-74.2) Lymph % (Auto) 26.3 % % (15.0-45.0) [place] % (Auto) 13.0 % % (4.5-13.0) Eos % (Auto) 4.3 % % (0.6-7.6) Baso % (Auto) 0.8 % % (0.3-1.7) Nucleat RBC Rel Count 0.2 % % (0.0-0.2) Absolute Neuts (auto) 6.27 10^3/uL 10^3/uL (1.70-6.50) Absolute Lymphs (auto) 2.98 10^3/uL 10^3/uL (1.00-3.00) Absolute Monos (auto) 1.47 10^3/uL H 10^3/uL (0.30-0.80) Absolute Eos (auto) 0.49 10^3/uL H 10^3/uL (0.03-0.40) Absolute Basos (auto) 0.09 10^3/uL 10^3/uL (0.02-0.10) Absolute Nucleated RBC 0.02 10^3/uL H 10^3/uL (0-0.01) Immature Gran % 0.4 % % (0.0-1.1) Immature Gran # 0.04 10^3/uL 10^3/uL (0.00-0.10) Sodium 138 mEq/L mEq/L (135-145) Potassium 3.9 mEq/L mEq/L (3.5-5.2) Chloride 107 mEq/L mEq/L (97-110) Carbon Dioxide 24 mEq/l mEq/l (22-31) Anion Gap 7 mEq/L mEq/L (6-14) BUN 15 mg/dL mg/dL (7-23) Creatinine 0.7 mg/dL mg/dL (0.7-1.3) Estimated GFR > 60 Glucose 153 mg/dL H mg/dL (70-100) Calcium 8.8 mg/dL mg/dL (8.5-10.4) POC Troponin I 0.00 ng/mL ng/mL (0.00-0.08) Medications Given: Discontinued Medications Sodium Chloride (Ns) 1,000 mls @ 0 mls/hr IV ONCE ONE; Wide Open PRN Reason: Protocol Stop: 11/27/18 08:03 Last Admin: 11/27/18 08:22 Dose: 1,000 mls Point of Care Test Results: Chemistry 11/27/18 08:04 POC Troponin I 0.00 ng/mL ng/mL (0.00-0.08) Departure - Departure Disposition: Home, Routine, Self-Care Clinical Impression: Accidental cannabis overdose Qualifiers: Encounter type: initial encounter Qualified Code(s): T40.7X1A - Poisoning by cannabis (derivatives), accidental (unintentional), initial encounter Condition: Fair Instructions: Medicinal Use of Cannabis (ED) Referrals: Patient,NotPresent [Unknown] - As per Instructions Bianca Lemons MD [Medical Doctor] - As per Instructions
[2018-11-27 08:10] LABS: PLATELET COUNT 317 10^3/uL (150-400)
--- NOTE | 2018-11-27 08:11 | CPEKG ---
Test Reason : OPEN Blood Pressure : / mmHG Vent. Rate : 064 BPM Atrial Rate : 064 BPM P-R Int : 165 ms QRS Dur : 111 ms QT Int : 432 ms P-R-T Axes : 059 030 022 degrees QTc Int : 446 ms Sinus rhythm Low voltage, precordias leads Confirmed by Rl Johnson ([id number]) on 11/27/2018 8:10:48 AM Referred By: PHYSICIAN ED Confirmed By:Rl Johnson
[2018-11-27 10:28] VITALS: BP 123/67
== END 2018-11-27 12:12 | disposition home or self-care (01) ==
LOC: EDUNIT#
DX: T40.7X1A Poisoning by cannabis (derivatives), accidental (unintentional), initial encounter (principal); E86.9 Volume depletion, unspecified; I10 Essential (primary) hypertension
CPT/HCPCS: 84484-ER